=== PATIENT | female | born 1980 | race American Indian/Alaskan Native ===

== ENCOUNTER 2022-07-17 22:59 | Emergency (ER) | payer MEDICAID ==
[2022-07-17 23:06] VITALS: BP 124/89
== END 2022-07-18 06:27 | disposition left against medical advice (07) ==
LOC: ED 22:59
DX: R51.9 Headache, unspecified (principal); Z53.21 Procedure and treatment not carried out due to patient leaving prior to being seen by health care provider; R42 Dizziness and giddiness